=== PATIENT | male | born 1945 | race Two or more races ===

== ENCOUNTER 2020-02-06 12:34 | Emergency (ER) | payer OTHER, MEDICAID ==
[~2020-02-06] VITALS: Ht 170.2 cm; Wt 83.9 kg
[2020-02-06 12:54] VITALS: BP 151/65
== END 2020-02-06 15:05 | disposition home or self-care (01) ==
LOC: ER 12:34
DX: S20.211A Contusion of right front wall of thorax, initial encounter (principal); S00.81XA Abrasion of other part of head, initial encounter; E11.9 Type 2 diabetes mellitus without complications; I10 Essential (primary) hypertension; W01.0XXA Fall on same level from slipping, tripping and stumbling without subsequent striking against object, initial encounter; Y93.89 Activity, other specified; Y92.89 Other specified places as the place of occurrence of the external cause; Y99.8 Other external cause status
CPT/HCPCS: 70450; 71101